=== PATIENT | female | born 1965 | race Caucasian/White ===

== ENCOUNTER 2019-07-19 15:52 | Outpatient (CLI) | payer BC, SELFPAY ==
--- NOTE | ~2019-07-19 | MM_ITS ---
EXAMINATION: MM screening [facility] BI w dinorah HISTORY: Screening mammogram TECHNIQUE: Craniocaudal and mediolateral oblique 3-D tomosynthesis images were obtained and synthetic 2-D images were generated. CAD analysis was submitted and interpreted. COMPARISON: 07/08/2018, 06/29/2017, 06/24/2017, 06/10/2016 BREAST PARENCHYMAL COMPOSITION: There are scattered areas of fibroglandular density. FINDINGS: An unchanged asymmetry is seen in the anterior third of the slightly outer right breast on the craniocaudal view. There is no evidence of suspicious mass, calcification, or architectural disto rtion to suggest malignancy in either breast. There has been no suspicious interval change. IMPRESSION: 1. No mammographic evidence of malignancy. 2. Recommend routine screening mammography in one year. BI-RADS Category 2: Benign finding(s). Reviewed, dictated and finalized at location A.
== END 2019-07-19 15:53 | disposition home or self-care (01) ==
PROVIDERS: PCP Family Medicine; Visit Provider Obstetrics & Gynecology
DX: Z12.31 Encounter for screening mammogram for malignant neoplasm of breast (principal)
CPT/HCPCS: 77063; 77067

== ENCOUNTER 2020-03-31 01:13 | Outpatient (CLI) | payer BC, SELFPAY ==
[2020-03-31 19:10] LABS: SARS-CoV-2 RNA PCR Negative
== END 2020-03-31 01:14 | disposition home or self-care (01) ==
LOC: ANHCOVIDDT 01:14
PROVIDERS: PCP Family Medicine; Visit Provider Internal Medicine Gastroenterology
DX: Z01.818 Encounter for other preprocedural examination (principal); Z20.828 Contact with and (suspected) exposure to other viral communicable diseases
CPT/HCPCS: 87635; C9803; U0003

== ENCOUNTER 2020-04-04 00:51 | Day surgery (SDC) | payer BC, SELFPAY ==
[2020-03-27 14:05] VITALS: BMI 29.7
[2020-04-04 07:15] VITALS: BP 127/76; PULSE 78; RESP 18; TEMP 36.4; O2SAT 94
[2020-04-04] MEDS: LACTATED RINGERS 1,000 ML 150 ML IV CONT (07:21)
--- NOTE | 2020-04-04 07:56 | WPDANESEPPF ---
Anes - Initial Pre Proc Eval Procedure: Operation Date: 04/04/20 08:30 Proposed Procedures p Screening Colonoscopy - Jeremy Godwin MD Date/Time: 04/04/20 07:56 Surgeon: Jeremy Godwin MD Pre Op Diagnosis: Neoplasm Screening Patient Data Age: 54 Gender: F Height: 5 ft 5 in Weight: 80.6 kg Last Vital Signs Temp 36.4 C 04/04/20 07:15 Pulse 78 04/04/20 07:15 Resp 18 04/04/20 07:15 BP 127/76 04/04/20 07:15 Pulse Ox 94 04/04/20 07:15 Allergies Allergy/AdvReac Type Severity Reaction Status Date / Time Sulfa (Sulfonamide Allergy Unknown Unknown Verified 04/04/20 07:10 Antibiotics) Home Medications Medication Instructions Recorded Confirmed Type No Home Medications 04/04/20 04/04/20 History Patient hx anesthesia problems: none Family hx anesthesia problems: none PMFSH Past Medical History Medical History Anxiety Seasonal allergies Surgical History Surgical History History of partial hysterectomy (~2015) Family History Family History Other Carcinoma of colon Family history of lymphoma Social History Social History Smoking status: Never smoker Second hand tobacco smoke exposure: No Alcohol intake: never Substance use: never Substance use type: does not use Living arrangements: with family Gender identity (if verbalized by the patient): Female Spiritual care concerns: No Anes - Eval Final PreProcedure Day of Procedure 04/04/20 07:56 Patient weight: overweight Heart: regular rate and rhythm Lungs: clear to auscultation Airway: Mallampati scale class 1 Neurological: alert and oriented Last oral intake: >/= 8 hours ASA classification: II Emergent: no Anesthetic plan: proceed Anesthesia type and monitoring: general GIVS and standard monitoring Informed Consent: The patient's anesthetic plan and its attendant risks and benefits were discussed with the patient/family/POA. Questions were solicited and answers provided to the satisfaction of the patient/family/POA.
--- NOTE | 2020-04-04 08:57 | PM.HPGS ---
History of Present Illness History of Present Illness Consent: Risks, benefits, and alternatives have been discussed and questions answered. Patient agrees to proceed with procedure. Chief complaint: Neoplasm Screening Narrative: Vesna Isabel is a 54 year old female with last colonoscopy 5 years ago, mother had colon cancer Review of Systems Constitutional: Constitutional: Denies headache(s) and Denies weakness Eyes: Eyes: Denies blurry vision ENT: Reports Normal hearing present, Denies headache(s) and Denies neck pain Cardiovascular: Cardiovascular: Denies chest pain and Denies dyspnea Respiratory: Respiratory: Denies dyspnea Gastrointestinal: Gastrointestinal: Reports no additional gastrointestinal complaints Genitourinary: Genitourinary: Denies dysuria Musculoskeletal: Musculoskeletal: Denies neck pain Integumentary/Breasts: Skin/Breast: Denies dry skin Neurologic: Reports Normal hearing present, Denies headache(s) and Denies weakness Psychiatric: Psychiatric: Denies anxiety Endocrine: Endocrine: Denies change in body appearance Hematologic/Lymphatic: Hematologic/Lymphatic: Denies easy bleeding Allergic/Immunologic: Allergic/Immunologic: Denies urticaria PMFSH Past Medical History Medical History (Updated 04/04/20 @ 08:57 by Jeremy Godwin MD) Anxiety Family history of colon cancer in mother Seasonal allergies Surgical History Surgical History History of partial hysterectomy (~2015) Family History Family History Other Carcinoma of colon Family history of lymphoma Social History Social History Smoking status: Never smoker Second hand tobacco smoke exposure: No Alcohol intake: never Substance use: never Substance use type: does not use Living arrangements: with family Gender identity (if verbalized by the patient): Female Spiritual care concerns: No Meds Home Medications and Allergies Home Medications Medication Instructions Recorded Confirmed Type No Home Medications 04/04/20 04/04/20 History Allergies Allergy/AdvReac Type Severity Reaction Status Date / Time Sulfa (Sulfonamide Allergy Unknown Unknown Verified 04/04/20 07:10 Antibiotics) Vital Signs Vital Signs - 24 hr 04/04/20 07:15 Temperature 97.6 F Pulse Rate 78 Respiratory Rate 18 Blood Pressure 127/76 Pulse Oximetry 94 Exam Const: General: comfortable and no acute distress HENMT: General nose exam: Normal nares present Eyes: General: appearance normal, both eyes and all related structures Neck: Neck: no JVD Resp: Auscultation: clear to auscultation bilaterally Cardio: Rate: regular rate Rhythm: regular rhythm GI: Inspection: non-distended GI Palp: Yes Soft to palpation Skin: General skin exam: normal color Neuro: General: gait normal Speech: normal speech Extrem: General: normal to inspection Psych: Mental Status: mental status grossly normal Assessment and Plan Assessment and plan (1) Family history of colon cancer in mother: Code(s): Z80.0 - Family history of malignant neoplasm of digestive organs Status: Acute Assessment and Plan: will proceed with colonoscopy
[2020-04-04 09:33] VITALS: BP 101/75; PULSE 100; RESP 22; O2SAT 95
[2020-04-04 09:43] VITALS: BP 105/70; PULSE 95; RESP 20; O2SAT 95
[2020-04-04 09:53] VITALS: BP 120/78; PULSE 88; RESP 20; O2SAT 97
== END 2020-04-04 10:07 | disposition home or self-care (01) ==
PROVIDERS: PCP Family Medicine; Visit Provider Internal Medicine Gastroenterology
PROC: 0DJD8ZZ Inspection of Lower Intestinal Tract, Via Natural or Artificial Opening Endoscopic (ICD-10-PCS; CPT 45378; principal; 2020-04-04 08:30)
DX: Z12.11 Encounter for screening for malignant neoplasm of colon (principal); D12.2 Benign neoplasm of ascending colon; J30.2 Other seasonal allergic rhinitis; F41.9 Anxiety disorder, unspecified; Z80.0 Family history of malignant neoplasm of digestive organs
CPT/HCPCS: 45385; 88305; J2704; J7120

== ENCOUNTER 2021-10-08 07:58 | Outpatient (CLI) | payer BC, SELFPAY ==
--- NOTE | ~2021-10-08 | MM_ITS ---
EXAMINATION: MM screening [facility] BI w dinorah HISTORY: Screening mammogram TECHNIQUE: Craniocaudal and mediolateral oblique 3-D tomosynthesis images were obtained and synthetic 2-D images were generated. Bilateral rotated lateral CC views. CAD analysis was submitted and interp reted. COMPARISON: 07/19/2019, 07/08/2018, 06/29/2017, 06/05/2015 bilateral screening mammogram examinations BREAST PARENCHYMAL COMPOSITION: There are scattered areas of fibroglandular density. FINDINGS: Stable mild fibroglandular asymmetry. There is no evidence of suspicious mass, calcificatio n, or architectural distortion to suggest malignancy in either breast. There has been no suspicious i nterval change. IMPRESSION: 1. No mammographic evidence of malignancy. 2. Recommend routine screening mammography in one year. BI-RADS Category 2: Benign finding(s). Reviewed, dictated and finalized at location A.
== END 2021-10-08 07:59 | disposition home or self-care (01) ==
LOC: ANHIMG 07:59
PROVIDERS: PCP Family Medicine; Visit Provider Obstetrics & Gynecology
DX: Z12.31 Encounter for screening mammogram for malignant neoplasm of breast (principal)
CPT/HCPCS: 77063; 77067

== ENCOUNTER 2022-12-15 07:57 | Outpatient (CLI) | payer OTHER, SELFPAY ==
--- NOTE | ~2022-12-15 | MM_ITS ---
EXAMINATION: MM screening [facility] BI w dinorah HISTORY: Screening mammogram TECHNIQUE: Craniocaudal and mediolateral oblique 3-D tomosynthesis images were obtained and synthetic 2-D images were generated. CAD analysis was submitted and interpreted. COMPARISON: 10/08/2021, 07/19/2019, 07/08/2018 BREAST PARENCHYMAL COMPOSITION: There are scattered areas of fibroglandular density. FINDINGS: RIGHT BREAST: No suspicious mass, calcification, or architectural distortion are identified to sugges t malignancy. There has been no suspicious interval change. LEFT BREAST: There is a possible mass in the posterior third outer breast best appreciated and mediol ateral oblique tomosynthesis admission . IMPRESSION: 1. Possible left breast mass. 2. Additional mammographic views and possible breast ultrasound are recommended. BI-RADS Category 0: Incomplete: Needs additional imaging evaluation. Reviewed, dictated and finalized at location A. IMPRESSION: 1. Possible left breast mass. 2. Additional mammographic views and possible breast ultrasound are recommended . BI-RADS Category 0: Incomplete: Needs additional imaging evaluation.
== END 2022-12-15 07:58 | disposition home or self-care (01) ==
LOC: ANHIMG 08:00
PROVIDERS: PCP Family Medicine; Visit Provider Obstetrics & Gynecology
DX: Z12.31 Encounter for screening mammogram for malignant neoplasm of breast (principal); R92.8 Other abnormal and inconclusive findings on diagnostic imaging of breast
CPT/HCPCS: 77063; 77067

== ENCOUNTER → 2023-01-13 07:24 | Outpatient (CLI) | payer OTHER, SELFPAY ==
--- NOTE | ~2023-01-13 | MMUS_ITS ---
EXAMINATION: MM diagnostic [facility] LT w dinorah, US breast LT limited HISTORY: Possible mass in posterior third of outer breast reported on 12/15/2022 screening mammogram TECHNIQUE: Additional 3-D tomosynthesis images of the left breast were performed and synthetic 2-D im ages were generated. CAD analysis was submitted and interpreted. High resolution upper outer and lowe r-outer quadrant left breast ultrasound was performed. COMPARISON: 12/15/2022 bilateral screening mammogram FINDINGS: MAMMOGRAPHIC FINDINGS: There is a circumscribed approximately 4 x 5.3 mm opacity with lobular outline in the posterior outer mid left breast. ULTRASOUND: 2:00 8 cm from nipple: 3.5 x 6.5 x 7.4 mm circumscribed sonolucency without internal vascularity or p osterior shadowing, consistent with benign process, likely a benign simple cyst. IMPRESSION: 1. Benign finding 2. Routine annual mammographic screening is recommended BI-RADS Category 2: Benign finding(s). Reviewed, dictated and finalized at location A. IMPRESSION: 1. Benign finding 2. Routine annual mammographic screening is recommended BI-RADS Category 2: Benign finding(s).
== END ==
PROVIDERS: PCP Family Medicine; Visit Provider Obstetrics & Gynecology
DX: R92.8 Other abnormal and inconclusive findings on diagnostic imaging of breast (principal)
CPT/HCPCS: 76642; 77061; 77065; G0279

== ENCOUNTER 2023-03-06 14:07 | Observation (INO) | payer OTHER, SELFPAY ==
[2023-03-06] VITALS (8 sets, daily range): BP systolic 99–144; BP diastolic 57–84; PULSE 69–98; RESP 16–26; TEMP 36.3–36.7; O2SAT 94–97
--- NOTE | ~2023-03-06 | XR_ITS ---
EXAMINATION: XR chest 1V portable DATE: 03/06/2023 16:20 INDICATION: Possible aspiration TECHNIQUE: frontal view of the chest was obtained. COMPARISON: None FINDINGS: Opacities in the left lower lung zones including and horizontal band of likely discoid atelectasis. N o pulmonary edema, pleural effusion or pneumothorax. Heart size is normal. Gas bubble within a modera te-sized hiatal hernia. IMPRESSION: 1. Mild opacities in the left lower lung zone due at least in part to discoid atelectasis with differ ential including superimposed aspiration or pneumonia. 2. Moderate-sized hiatal hernia. Reviewed, dictated and finalized at location A. IMPRESSION: 1. Mild opacities in the left lower lung zone due at least in part to discoid a telectasis with differential including superimposed aspiration or pneumonia. 2. Moderate-sized hiatal hernia.
--- NOTE | 2023-03-06 14:50 | ED.GENADULT ---
HPI - General Adult General Chief complaint: Skin/Abscess/Foreign Body Stated complaint: bolus in throat Time Seen by Provider: 03/06/23 14:42 History of Present Illness HPI narrative: Patient is a 57-year-old female who presents ER with inability to swallow. She took an ibuprofen due to having a headache this morning at 8:15 AM. Since then she has been unable to drink water and it will come straight up. Patient reports intermittent acid reflux but nothing significant recently. No chest pain or chest pressure. No difficulty breathing. No aspiration. Related Data Home Medications Medication Instructions Recorded Confirmed No Home Medications 04/04/20 02/02/23 Allergies Allergy/AdvReac Type Severity Reaction Status Date / Time Sulfa (Sulfonamide Allergy Unknown Unknown Verified 03/06/23 14:07 Antibiotics) Review of Systems Review of Systems: All systems reviewed & are unremarkable except as noted in HPI and below Constitutional: Constitutional: Denies chills and Denies fever(s) ENT: Reports dysphagia, Denies nasal congestion and Denies sore throat Gastrointestinal: Gastrointestinal: Denies abdominal pain, Denies diarrhea, Reports nausea and Denies vomiting PMFSH Past Medical History Medical History Anxiety Encounter for annual health examination Family history of colon cancer in mother Seasonal allergies Surgical History Surgical History History of partial hysterectomy (~2016) Family History Family History Other Carcinoma of colon Family history of lymphoma Social History Social History Smoking status: Never smoker Second hand tobacco smoke exposure: No Alcohol intake: never Substance use: never Substance use type: does not use Living arrangements: with family Gender identity (if verbalized by the patient): Female Spiritual care concerns: No Exam Narrative: GENERAL: Well-appearing, well-nourished, and in no acute distress. HEAD: Normocephalic, atraumatic. ENT: Mucous membranes moist. Normal-appearing posterior oropharynx. CHEST: Clear to auscultation. No respiratory distress. HEART: Regular rate and rhythm. Normal peripheral pulses. EXTREMITIES: Normal range of motion. No edema. SKIN: Warm, dry, no rash. NEURO: Alert and oriented x3. PSYCH: Normal mood and affect. Course Course Emergency Course: Patient resting comfortably but unable to drink water. Discussed with GI. Will take to GI lab for endoscopy. Vital Signs Vital signs: Vital Signs Temperature 97.4 F L 03/06/23 14:30 Pulse Rate 94 03/06/23 14:30 Respiratory Rate 18 03/06/23 14:30 Blood Pressure 128/84 03/06/23 14:30 Pulse Oximetry 95 03/06/23 14:30 Oxygen Delivery Room Air 03/06/23 14:30 Temperature 97.4 F L 03/06/23 14:30 Pulse Rate 94 03/06/23 14:30 Respiratory Rate 18 03/06/23 14:30 Blood Pressure 128/84 03/06/23 14:30 Pulse Oximetry 95 03/06/23 14:30 Oxygen Delivery Room Air 03/06/23 14:30 Medical Decision Making Vital Signs Vital Signs: Vital Signs Temperature 97.4 F L 03/06/23 14:30 Pulse Rate 94 03/06/23 14:30 Respiratory Rate 18 03/06/23 14:30 Blood Pressure 128/84 03/06/23 14:30 Pulse Oximetry 95 03/06/23 14:30 Oxygen Delivery Room Air 03/06/23 14:30 Temperature 97.4 F L 03/06/23 14:30 Pulse Rate 94 03/06/23 14:30 Respiratory Rate 18 03/06/23 14:30 Blood Pressure 128/84 03/06/23 14:30 Pulse Oximetry 95 03/06/23 14:30 Oxygen Delivery Room Air 03/06/23 14:30 Discharge Plan Discharge Clinical Impression: Acute obstruction of esophagus Patient Disposition: Still a Patient Condition: Stable Prescriptions: No Action No Home Medications
--- NOTE | 2023-03-06 14:58 | PM.HPGS ---
History of Present Illness History of Present Illness Consent: Risks, benefits, and alternatives have been discussed and questions answered. Patient agrees to proceed with procedure. Chief complaint: bolus in throat Narrative: Vesna Isabel is a 57 year old female Who presented emergency room today stating she could not swallow. She had taken 1 I will tablet and could not get that to go down and since then water will not go down. prior to that she had a cookie earlier this morning with no problem. Last night she had some chicken. She was not aware of having had food get stuck prior to that. She does not take medication for acid reflux. Review of Systems Review of Systems: All systems reviewed & are unremarkable except as noted in HPI and below PMFSH Past Medical History Medical History Anxiety Encounter for annual health examination Family history of colon cancer in mother Seasonal allergies Surgical History Surgical History History of partial hysterectomy (~2015) Family History Family History Other Carcinoma of colon Family history of lymphoma Social History Social History Smoking status: Never smoker Second hand tobacco smoke exposure: No Alcohol intake: never Substance use: never Substance use type: does not use Living arrangements: with family Gender identity (if verbalized by the patient): Female Spiritual care concerns: No Meds Home Medications and Allergies Home Medications Medication Instructions Recorded Confirmed Type No Home Medications 04/04/20 02/02/23 History Allergies Allergy/AdvReac Type Severity Reaction Status Date / Time Sulfa (Sulfonamide Allergy Unknown Unknown Verified 03/06/23 14:07 Antibiotics) Vital Signs Vital Signs - 24 hr 03/06/23 14:30 Temperature 36.3 C L Pulse Rate 94 Respiratory Rate 18 Blood Pressure 128/84 Pulse Oximetry 95 Oxygen Delivery Room Air Exam Const: General: alert Orientation/consciousness: patient oriented x3 Other: She has been expectorating saliva because she is unable to swallow. Resp: Auscultation: clear to auscultation bilaterally Cardio: Rhythm: regular rhythm GI: GI Palp: Yes Soft to palpation and No Tenderness to palpation present (GI) Neuro: General: patient oriented x3 Assessment and Plan Assessment and plan (1) Acute obstruction of esophagus: Code(s): K22.2 - Esophageal obstruction Status: Acute Assessment and Plan: EGD with possible biopsy or dilatation or cautery.
--- NOTE | 2023-03-06 15:12 | P.PNAN_ITS ---
Anes - Initial Pre Proc Eval Procedure: Operation Date: 03/06/23 15:00 Proposed Procedures p Esophagogastroduodenoscopy - Alex Abreu MD Date/Time: 03/06/23 15:12 Surgeon: Alex Abreu MD Pre Op Diagnosis: bolus in throat Patient Data Age: 57 Gender: F Height: 1.65 m Weight: 79.3 kg Last Vital Signs Temp 36.3 C L 03/06/23 14:30 Pulse 94 03/06/23 14:30 Resp 18 03/06/23 14:30 BP 128/84 03/06/23 14:30 Pulse Ox 95 03/06/23 14:30 O2 Del Method Room Air 03/06/23 14:30 Allergies Allergy/AdvReac Type Severity Reaction Status Date / Time Sulfa (Sulfonamide Allergy Unknown Unknown Verified 03/06/23 14:07 Antibiotics) Home Medications Medication Instructions Recorded Confirmed Type No Home Medications 04/04/20 03/06/23 History Patient hx anesthesia problems: none Family hx anesthesia problems: none Results Review: All pre-operative results and documents have been reviewed as part of the pre- operative evaluation. [facility] Past Medical History Medical History Anxiety Encounter for annual health examination Family history of colon cancer in mother Seasonal allergies Surgical History Surgical History History of partial hysterectomy (~2015) Family History Family History Other Carcinoma of colon Family history of lymphoma Social History Social History Smoking status: Never smoker Second hand tobacco smoke exposure: No Alcohol intake: never Substance use: never Substance use type: does not use Living arrangements: with family Gender identity (if verbalized by the patient): Female Spiritual care concerns: No Anes - Eval Final PreProcedure Day of Procedure 03/06/23 15:12 Patient weight: overweight Heart: regular rate and rhythm Lungs: clear to auscultation Airway: Mallampati scale class II Neurological: alert and oriented Last oral intake: >/= 8 hours ASA classification: II Emergent: yes Anesthetic plan: proceed Anesthesia type and monitoring: general GIVS and ETT and standard monitoring Results Review: All pre-operative results and documents have been reviewed as part of the pre- operative evaluation. Informed Consent: The patient's anesthetic plan and its attendant risks and benefits were discussed with the patient/family/POA. Questions were solicited and answers provided to the satisfaction of the patient/family/POA.
[2023-03-06] MEDS: LACTATED RINGERS 1,000 ML 150 ML IV CONT (15:53)
--- NOTE | 2023-03-06 16:42 | SUR.PHASEII ---
Pt admitted for 23 hour observation
--- NOTE | 2023-03-06 16:45 | ADMGEN ---
This patient, Vesna Isabel, was admitted to 3 [facility] Surg Room 315-01 @ 2665. Patient/family oriented to hospital policies and general routines including ID bracelet, bed and alarms, visiting hours, pain management, procedures, bathroom and other care routines, personal items, smoking policy, room service/diet, and visiting hours. Information on how to activate the Rapid Response Team has been discussed. Patient/Family are encouraged to report perceived risks to care and to ask questions if they do not understand what they are told or what they should do.
[2023-03-06] MEDS: LACTATED RINGERS 1,000 ML 100 ML IV CONT (19:02)
[2023-03-06] MEDS: PANTOPRAZOLE SODIUM IV 40 MG VIAL IV PUSH (21:15)
[2023-03-07 04:00] VITALS: BP 115/68; PULSE 70; RESP 20; TEMP 36.4; O2SAT 95
[2023-03-07 06:58] LABS: Hematocrit 37.5 % (37.0-47.0); Hemoglobin 12.2 g/dL (12.0-15.0); Mean Corpuscular HGB Conc 32.5 g/dl (32-36); Mean Corpuscular Hemoglobin 29.6 pg (26-34); Platelet Count Result 252 k/mm3 (150-375); Red Blood Count 4.12 M/mm3 (4.2-5.4); White Blood Count 8.9 K/mm3 (4.5-10.0)
[2023-03-07 08:00] VITALS: BP 125/72; PULSE 74; RESP 16; TEMP 36.4; O2SAT 96
[2023-03-07] MEDS: PANTOPRAZOLE SODIUM IV 40 MG VIAL IV PUSH (11:15)
[2023-03-07] MEDS: ACETAMINOPHEN 325 MG TABLET 650 MG PO (11:48)
[2023-03-07 12:00] VITALS: BP 113/80; PULSE 71; RESP 14; TEMP 36.6; O2SAT 98
[2023-03-07 15:54] VITALS: BP 130/82; PULSE 75; RESP 16; TEMP 36.5; O2SAT 99
--- NOTE | 2023-03-07 17:35 | PM.DS ---
DS: Admitting Diagnosis Discharge Date 03/07/23 Admitting Diagnosis dysphagia foreign body esophagus DS: Discharge Diagnosis Discharge Diagnosis Plan patient underwent EGD and found severe esophageal stricture, pill was removed and received esophageal diet with protonix she has been doing ok and she can go home no nausea or abdominal pain DS: Summary Hospital Course Hospital Course: had EGD tolerated special diet she is going home with ppi bid Status at Discharge Functional status at discharge: independent ambulation Overall status at discharge: patient is back to baseline Time Spent with Patient Time attestation: Total time spent providing and/or coordinating discharge services: Time spent: Greater than 30 minutes Exam Const: General: comfortable and no acute distress HENMT: Face/Nose/Sinus: Normal nares present Eyes: General: appearance normal, both eyes and all related structures Neck: Neck: no JVD Resp: Auscultation: clear to auscultation bilaterally Cardio: Rate: regular rate Rhythm: regular rhythm GI: Inspection: non-distended GI Palp: Yes Soft to palpation Skin: General skin exam: normal color Neuro: General: gait normal Speech: normal speech Extrem: General: normal to inspection Psych: Mental Status: mental status grossly normal DS: Data Data Completed and Pending Completed studies during hospitalization: egd Labs on day of discharge: Labs from last 24 hours 03/07/23 06:31 WBC 8.9 RBC 4.12 L Hgb 12.2 Hct 37.5 MCV 91.0 MCH 29.6 MCHC 32.5 RDW 12.0 Plt Count 252 MPV 11.0 H Discharge Plan Discharge Discharging Clinician: Jeremy Godwin Patient Disposition: Home, Self-Care Activity: as tolerated Diet: other - see discharge instructions Discharge Instructions: Take your medications as prescribed. Dr. Abreu's office will call you to schedule your EGD outpatient. Please follow a soft diet. Chew your food thoroughly before swallowing. Patient Instructions: Antibiotic Form Stand Alone Forms: General Discharge Information Follow-up/Referrals: Chica Farah MD [Primary Care Provider] - Alex Abreu MD [Physician] - Other (Office will call you to schedule your EGD. If the office does not call you by next week, call the office to schedule. ) Discharge Medications: New pantoprazole [Protonix] 40 mg Tablet,Delayed Release (Dr/Ec) 40 mg PO BID 30 Days Qty: 60 0RF sucralfate [Carafate] 100 mg/mL Suspension 1 g PO TID 30 Days Qty: 900 0RF Rx Instructions: Take three times a day before meals Date of admission: 03/06/23 15:45 Primary Care Provider: Chica Farah Admitting Provider: Alex Abreu Attending physician on admission: Alex Abreu Condition: Stable [facility] Discharge Billing Hospital Discharge Hospital Discharge: [id number] Hosp D/C 30 Min
== END 2023-03-07 18:18 | disposition home or self-care (01) ==
LOC: ANHED 14:56 → ANHSURGERY 15:02 → ANH3MEDSUR 03-07 16:42
PROVIDERS: Admitting Provider Internal Medicine Gastroenterology; Emergency Provider Emergency Medicine; PCP Family Medicine; Visit Provider Internal Medicine Gastroenterology
PROC: 0DJ08ZZ Inspection of Upper Intestinal Tract, Via Natural or Artificial Opening Endoscopic (ICD-10-PCS; CPT 43235; principal; 2023-03-06 15:00)
DX: T18.198A Other foreign object in esophagus causing other injury, initial encounter (principal); K22.2 Esophageal obstruction; K22.10 Ulcer of esophagus without bleeding; K44.9 Diaphragmatic hernia without obstruction or gangrene; R51.9 Headache, unspecified; K21.9 Gastro-esophageal reflux disease without esophagitis; F41.9 Anxiety disorder, unspecified; J30.2 Other seasonal allergic rhinitis; E66.3 Overweight; Z68.29 Body mass index [BMI] 29.0-29.9, adult
CPT/HCPCS: 43247; 36415; 71045; 85027; 96361; 96374; 99285; A9270; C9113; G0378; J7120

== ENCOUNTER 2023-03-19 07:00 | Outpatient (NON) | payer OTHER, SELFPAY | END 2023-03-19 07:01 | disposition home or self-care (01) | LOC: ANHLAB 03-20 07:27 | PROVIDERS: PCP Family Medicine; Visit Provider Internal Medicine Gastroenterology | DX: K22.2 Esophageal obstruction (principal) | CPT/HCPCS: 88305 ==

== ENCOUNTER 2023-03-19 09:24 | Day surgery (SDC) | payer OTHER, SELFPAY ==
[2023-03-09 10:21] VITALS: BMI 29.9
[2023-03-13 07:27] VITALS: BMI 29.9
--- NOTE | 2023-03-18 14:05 | PM.HPGS ---
History of Present Illness History of Present Illness Consent: Risks, benefits, and alternatives have been discussed and questions answered. Patient agrees to proceed with procedure. Chief complaint: Esophageal Stricture Narrative: Vesna Isabel is a 57 year old female who is here for endoscopy to investigate recently found severe stricture. She had presented to the emergency room with a foreign body occlusion of the esophagus which was due to a tablet. It was able to be removed by breaking it up. I encountered a high-grade stricture that did not allow the scope to pass beyond the proximal esophagus. We have started her on pantoprazole 40 mg b.i.d.. Review of Systems Review of Systems: All systems reviewed & are unremarkable except as noted in HPI and below PMFSH Past Medical History Medical History Anxiety Dysphagia Encounter for annual health examination Family history of colon cancer in mother GERD (gastroesophageal reflux disease) Seasonal allergies Surgical History Surgical History History of partial hysterectomy (~2015) Family History Family History Other Carcinoma of colon Family history of lymphoma Social History Social History Smoking status: Never smoker Second hand tobacco smoke exposure: No Alcohol intake: never Substance use: never Substance use type: does not use Lack of Transportation: No Lack of Food: Never True Current Housing: I Have Housing Concerned About Future Housing: No Difficulty Paying Gas/Electric Bills: No Difficulty Paying for Meds: No Currently Unemployed: No Education: Decline to Answer Difficulty w/ Childcare or Family Care: No Living arrangements: with family Gender identity (if verbalized by the patient): Female Spiritual care concerns: No Meds Home Medications and Allergies Home Medications Medication Instructions Recorded Confirmed Type pantoprazole 40 mg tablet,delayed 40 mg PO BID 30 days #60 tabs 03/07/23 03/13/23 Rx release (Protonix) sucralfate 100 mg/mL oral 1 g (10 mL) PO TID 30 days #900 mL 03/07/23 03/13/23 Rx suspension (Carafate) Allergies Allergy/AdvReac Type Severity Reaction Status Date / Time Sulfa (Sulfonamide Allergy Unknown Unknown Verified 03/19/23 09:52 Antibiotics) Exam Const: General: alert Orientation/consciousness: patient oriented x3 Resp: Auscultation: clear to auscultation bilaterally Cardio: Rhythm: regular rhythm GI: GI Palp: Yes Soft to palpation and No Tenderness to palpation present (GI) Neuro: General: patient oriented x3 Assessment and Plan Assessment and plan (1) Dysphagia: Code(s): R13.10 - Dysphagia, unspecified Status: Acute Assessment and Plan: EGD with possible biopsy or dilatation or cautery.
--- NOTE | 2023-03-19 08:11 | P.PNAN_ITS ---
Anes - Initial Pre Proc Eval Procedure: Operation Date: 03/19/23 13:30 Proposed Procedures p Esophagogastroduodenoscopy - Alex Aberu MD Date/Time: 03/19/23 08:11 Surgeon: Alex Abreu MD Pre Op Diagnosis: Esophageal Stricture Patient Data Age: 57 Gender: F Height: 1.63 m Weight: 79 kg Allergies Allergy/AdvReac Type Severity Reaction Status Date / Time Sulfa (Sulfonamide Allergy Unknown Unknown Verified 03/19/23 09:52 Antibiotics) Home Medications Medication Instructions Recorded Confirmed Type pantoprazole 40 mg tablet,delayed 40 mg PO BID 30 days #60 tabs 03/07/23 03/13/23 Rx release (Protonix) sucralfate 100 mg/mL oral 1 g (10 mL) PO TID 30 days #900 mL 03/07/23 03/13/23 Rx suspension (Carafate) Patient hx anesthesia problems: none Family hx anesthesia problems: none Results Review: All pre-operative results and documents have been reviewed as part of the pre- operative evaluation. [facility] Past Medical History Medical History (Updated 03/19/23 @ 08:12 by Maxi Mondragon DO) Anxiety Dysphagia Encounter for annual health examination Family history of colon cancer in mother GERD (gastroesophageal reflux disease) Seasonal allergies Surgical History Surgical History History of partial hysterectomy (~2015) Family History Family History Other Carcinoma of colon Family history of lymphoma Social History Social History Smoking status: Never smoker Second hand tobacco smoke exposure: No Alcohol intake: never Substance use: never Substance use type: does not use Lack of Transportation: No Lack of Food: Never True Current Housing: I Have Housing Concerned About Future Housing: No Difficulty Paying Gas/Electric Bills: No Difficulty Paying for Meds: No Currently Unemployed: No Education: Decline to Answer Difficulty w/ Childcare or Family Care: No Living arrangements: with family Gender identity (if verbalized by the patient): Female Spiritual care concerns: No Anes - Eval Final PreProcedure Day of Procedure 11/09/23 08:11 Patient weight: overweight Heart: regular rate and rhythm Lungs: clear to auscultation Airway: Mallampati scale class II Neurological: alert and oriented Last oral intake: >/= 8 hours ASA classification: II Emergent: no Anesthetic plan: proceed Anesthesia type and monitoring: general GIVS and standard monitoring Results Review: All pre-operative results and documents have been reviewed as part of the pre- operative evaluation. Informed Consent: The patient's anesthetic plan and its attendant risks and benefits were discussed with the patient/family/POA. Questions were solicited and answers provided to the satisfaction of the patient/family/POA.
[2023-03-19 09:53] VITALS: BP 135/79; PULSE 55; RESP 17; TEMP 37.3; O2SAT 99; BMI 30.2
[2023-03-19] MEDS: LACTATED RINGERS 1,000 ML 150 ML IV CONT (10:08)
[2023-03-19 10:57] VITALS: BP 96/60; PULSE 73; RESP 16; O2SAT 97
[2023-03-19 11:07] VITALS: BP 104/67; PULSE 58; RESP 18; O2SAT 97
[2023-03-19 11:17] VITALS: BP 110/75; PULSE 66; RESP 20; O2SAT 98
--- NOTE | 2023-03-19 12:32 | WPDANESPN ---
Anes - Prog Note Post-Op Date/Time: 03/19/23 12:32 Cardiovascular status: normal Respiratory status: normal Airway patency: baseline Mental status: baseline Post-Op hydration status: normal Vital Signs: Last Vital Signs Temp 37.3 C 03/19/23 09:53 Pulse 66 03/19/23 11:17 Resp 20 03/19/23 11:17 BP 110/75 03/19/23 11:17 Pulse Ox 98 03/19/23 11:17 O2 Del Method Room Air 03/19/23 11:17 Pain Score (VAS): 0 I/O: Intake & Output 03/18/23 03/19/23 03/19/23 23:59 07:59 15:59 Intake Total 400 Balance 400 Post-procedural complaints: none Patient Feedback: Patient satisfied with anesthetic care. Other Findings: Patient vital signs back to baseline. Patient denies nausea and vomiting. Patient's pain under control. Patient OK for discharge.
== END 2023-03-19 11:45 | disposition home or self-care (01) ==
PROVIDERS: PCP Family Medicine; Visit Provider Internal Medicine Gastroenterology
PROC: 0DJ08ZZ Inspection of Upper Intestinal Tract, Via Natural or Artificial Opening Endoscopic (ICD-10-PCS; CPT 43235; principal; 2023-03-19 13:30)
DX: K22.2 Esophageal obstruction (principal); R13.19 Other dysphagia; K22.70 Barrett's esophagus without dysplasia; K44.9 Diaphragmatic hernia without obstruction or gangrene
CPT/HCPCS: 43249; 43239

== ENCOUNTER 2023-03-26 13:33 | Outpatient (CLI) | payer OTHER, SELFPAY ==
--- NOTE | ~2023-03-26 | XR_ITS ---
EXAMINATION: XR barium swallow DATE: 03/26/2023 14:08 INDICATION: Dysphagia. TECHNIQUE: The patient drank thick barium, gas-producing crystals, and thin barium. Fluoroscopy of th e hypopharynx and esophagus was performed. Fluoroscopy exposure time was 0.6 minutes. The total numbe r of images was 275. The dose-area product was 2.482 Gy-cm^2. COMPARISON: None. FINDINGS: There is no mass or stricture of the esophagus. Esophageal motility is normal. There is a m oderate-sized sliding hiatal hernia. IMPRESSION: 1. Moderate-sized sliding hiatal hernia. Reviewed, dictated and finalized at location A. [employer]
== END 2023-03-26 13:34 | disposition home or self-care (01) ==
PROVIDERS: PCP Family Medicine; Visit Provider Internal Medicine Gastroenterology
DX: R13.10 Dysphagia, unspecified (principal); K44.9 Diaphragmatic hernia without obstruction or gangrene
CPT/HCPCS: 74220

== ENCOUNTER 2025-03-03 14:52 | Outpatient (CLI) | payer OTHER, SELFPAY ==
--- NOTE | ~2025-03-03 | MM_ITS ---
EXAMINATION: MM screening [facility] BI w dinorah HISTORY: Screening TECHNIQUE: Craniocaudal and mediolateral oblique 3-D tomosynthesis images were obtained and synthetic 2-D images were generated. CAD analysis was submitted and interpreted. COMPARISON: Comparison to multiple prior studies sequentially, with oldest reviewed study dated 06/29/2017. BREAST PARENCHYMAL COMPOSITION: Not dense: There are scattered areas of fibroglandular density. FINDINGS: There is no evidence of suspicious mass, calcification, or architectural distortion to suggest malignancy in either breast. There has been no suspicious interval change. IMPRESSION: 1. No mammographic evidence of malignancy. 2. Recommend routine screening mammography in one year. BI-RADS Category 1: Negative Reviewed, dictated and finalized at location O.
== END 2025-03-03 14:53 | disposition home or self-care (01) ==
PROVIDERS: PCP Family Medicine; Visit Provider Obstetrics & Gynecology
DX: Z12.31 Encounter for screening mammogram for malignant neoplasm of breast (principal)
CPT/HCPCS: 77063; 77067